=== PATIENT | female | born 1935 | race Caucasian/White ===

== ENCOUNTER 2016-09-13 13:03 | Emergency (ER) | payer MEDICARE, OTHER ==
[~2016-09-13 13:03] MED LIST: ADV250INH IH; ATEN100T PO; CYA1000I IM; DOXY50CA2 PO; DULO60CA61 PO; NORT10CA PO; OXYB5TAB10 PO; ROPI1TAB3 PO; TIOT18CA3 IH; ZOV800 PO
[2016-09-13 13:16] VITALS: BP 136/66; PULSE 74; RESP 18; O2SAT 97
--- NOTE | 2016-09-13 14:42 | ED.REPORT ---
HPI-Head Prob / Injury Date of Service Sep 13, 2016 ED Provider: Bruce Foreman PA-C Bessy is an 81-year-old female brought in by EMS for assessment following a ground-level fall. She states that she lost her balance while moving a breakfast tray in her room and fell over backwards striking her head on a portion of her bed frame. Denies head, neck pain. Denies losing consciousness, vomiting, use of blood thinners. Denies new neurological symptoms. She does report a history of peripheral polyneuropathy which is at baseline, and right shoulder pain which is been present for several weeks. Nursing Notes Stated Complaint: GLF Chief Complaint: Multiple Trauma/Fall Nursing Notes Reviewed: Yes Allergies: Coded Allergies: codeine (Verified Allergy, Severe, 05/19/09) diphenhydramine (Verified Allergy, Severe, 05/19/09) latex (Verified Allergy, Severe, 05/19/09) Scheduled Acyclovir (Acyclovir) 800 Mg Tab 800 MG PO DAILY Atenolol (Atenolol) 100 Mg Tablet 100 MG PO DAILY Cyanocobalamin (Cyanocobalamin Injection) 1,000 Mcg/1 Ml Vial 1,000 MCG IM Monthly Doxycycline Hyclate (Doxycycline Hyclate) 50 Mg Capsule 50 MG PO DAILY Duloxetine (Duloxetine) 60 Mg Capsule.dr 60 MG PO AM Fluticasone/Salmeterol (Advair 250-50 Diskus) 60 Puff/Inh Disk 1 PUFF IH BID Nortriptyline (Nortriptyline) 10 Mg Capsule 10 MG PO HS Oxybutynin Chloride (Oxybutynin Chloride) 5 Mg Tablet 5 MG PO TID Ropinirole (Ropinirole) 1 Mg Tablet 2 MG PO evening Ropinirole (Ropinirole) 1 Mg Tablet 3 MG PO HS Tiotropium [place] (Spiriva) 18 Mcg Cap.w.dev 18 MCG IH DAILY General Time Seen by Provider: 14:06 Chief Complaint Blunt head trauma Past Medical History Past Medical History Seasonal and environmental allergies History of ocular HSV infection, on chronic suppressive acyclovir. Peripheral polyneuropathy followed by Dr. Pichardo. Restless leg syndrome. History of skin cancers with Mohs procedure. Gastroesophageal reflux. Urinary urgency, on oxybutynin. Allergic rhinitis. Asthma. Vitamin B12 deficiency. Reports: Diabetes mellitus, Hypertension Family History noncontributory Smoking History Never Smoker Social History Alcohol Use: Denies alcohol use Drug Use: Denies drug use Other Social History: Good social support, Lives alone, , Local resident Ambulatory Status Cane Review of Systems Negative unless stated otherwise in history of present illness Physical Exam General: Well appearing, well developed, well nourished, no acute distress. Head: Atraumatic, normocephalic. No mastoid tenderness. Eyes: No scleral icterus or injection. No discharge. PERRL. Vision grossly intact. Ears: Pinna and tragus nontender with manipulation. External auditory canal patent, atraumatic and without discharge. Tympanic membrane cheung, shiny and translucent without fluid, bulging, retraction or perforation. Hearing grossly intact. Nose: Symmetrical, nares patent without discharge. No frontal or maxillary sinus tenderness. Mouth/pharynx: normal dentition, mucus membranes moist. Tonsils 2+ and symmetrical, uvula midline. Pharynx noninjected, no cobblestoning or discharge. Voice clear. Neck: Normal range of motion. No midline spinous process tenderness, paraspinal tenderness or lymphadenopathy. Trachea midline. Respiratory: Regular rate and rhythm. Breath sounds present, clear to auscultation and equal bilaterally. No respiratory distress. No increased work of breathing, speaks in complete sentences. Cardiovascular: Regular rate and rhythm, without murmur, gallop or rub. No pedal edema. Gastrointestinal: Abdomen flat and non-tender without guarding or rebound. Bowel sounds normoactive. Skin: Warm and dry. Legs: Bilateral erythema from mid de guzman down with warmth. No pitting edema. Neurological: Sensation and strength grossly intact in extremities. Cranial nerves: Vision grossly intact, PERRL, EOMI. Facial motion symmetrical, sensation to light touch over forehead, maxilla and mandible present and equal B /L. Voice clear and fluent, no drooling/pooling of saliva, uvula rises midline. Psychological: Alert and oriented. Speech appropriate, linear and logical. Behavior appropriate. Initial Vital Signs Vital Signs (First) Date Time Temp Pulse Resp B/P Pulse Ox O2 Delivery O2 Flow Rate FiO2 09/13/16 13:16 36.4 74 18 136/66 97 Room Air Initial VS: Reviewed, Vital signs normal Interpretation & Diagnostics Interpretation & Diagnostics: PROCEDURE: CT BRAIN WITHOUT CONTRAST ([id number]) INDICATIONS: GLF HIT HEAD C/O HEAD NECK PAIN IMPRESSION: 1. No acute intracranial abnormality. 2. Age-related atrophy and chronic deep white matter ischemic changes. PROCEDURE: CT CERVICAL SPINE WITHOUT CONTRAST ([id number]) INDICATIONS: GLF HIT HEAD C/O HEAD NECK PAIN IMPRESSION: 1. Negative for fracture. 2. 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 Ligamentous calcifications also noted. Re-Eval/Medical Decision Med Decision/Clinical Course 81-year-old female brought in for assessment following ground-level fall. She reports losing her balance and falling over backwards, striking her head against a bed frame. Denies loss of consciousness, use of blood thinners, vomiting, seizure. Denies neck pain or neurological symptoms. CT of her brain and neck are both reassuring. Physical examination reveals no neurological deficits. I have low suspicion of intracranial bleeding, neck injury or concussion. I do note that her lower legs are erythematous and warm. Her son states that her primary care provider has been treating her with antibiotics. They have an appointment for 8:30 tomorrow morning. I do not believe the patient is septic, as she is afebrile, not tachycardic or diaphoretic. She does not complain of malaise. I think is reasonable for her to follow-up with her primary care provider about this in the morning. I believe she is stable and safe for discharge to home. I discussed this with the patient and her son. They understand the plan and are comfortable with it. Provided a prescription for acetaminophen and ibuprofen to be used at her residence home. Provided return precautions. Discharge & Departure Primary Impression: Fall Encounter type: initial encounter Qualified Code: W19.XXXA - Unspecified fall, initial encounter Disposition: Home All VS Reviewed: Yes Condition: Stable Patient Instructions: Fall Prevention for Older Adults (GEN) Additional Instructions: Evaluation in the emergency department following a ground-level fall. CT scan of both your brain and neck revealed no injuries from a fall. I do not suspect that your fall was caused by a cardiac event or stroke. I believe you are stable and safe for discharge. I do note during the physical exam that your lower legs are very red and warm. This is apparently a condition you have been addressing with your primary care provider. I understand she has appointment for 8:30 tomorrow morning to further assess this. Returns emergency department for any new or worsening symptoms including suddenly increasing pain in her neck, neurologic changes, increasing headache, vomiting Referrals: Nicole Davila MD (PCP) EDSupervising Provider for APC: Rhonda Higgins MD copies to: Nicole Davila MD, Seth PA-C Sep 13, 2016 14:42
--- NOTE | 2016-09-13 15:35 | DRSVH ---
PROCEDURE: CT BRAIN WITHOUT CONTRAST ([id number]) INDICATIONS: GLF HIT HEAD C/O HEAD NECK PAIN TECHNIQUE: Noncontrast 4.5 mm thick angled axial sections acquired from the foramen magnum to the vertex, with c oronal reformats. COMPARISON: CT brain 01/15/2016 FINDINGS: Image quality: Excellent. CSF spaces: Basal cisterns are patent. No extra-axial fluid collections. The ventricles are symmet lisa in size and shape. Brain: No intracranial bleeds or masses. There is cerebral volume loss for age, with resultant vent ricular and sulcal prominence. There are periventricular and deep white matter chronic small vessel ischemic changes. There is intracranial internal carotid artery atherosclerosis. Skull and face: Calvarium and visualized facial bones appear intact, without suspicious lesions. Sinuses: Visualized sinuses and mastoids are clear. IMPRESSION: 1. No acute intracranial abnormality. 2. Age-related atrophy and chronic deep white matter ischemic changes. Dictated by: Leonel Doss M.D. on 09/13/2016 at 15:32 Approved by: Leonel Doss M.D. on 09/13/2016 at 15:34
--- NOTE | 2016-09-13 15:38 | DRSVH ---
PROCEDURE: CT CERVICAL SPINE WITHOUT CONTRAST ([id number]) INDICATIONS: GLF HIT HEAD C/O HEAD NECK PAIN TECHNIQUE: Noncontrast 3 mm thick sections acquired from the skull base to the T4 level. Sagittal and coronal r eformats were then constructed. For radiation dose reduction, the following was used: automated exp osure control, adjustment of mA and/or kV according to patient size. COMPARISON: CT cervical spine 01/17/2016 FINDINGS: Image quality: Excellent. Bones: No fractures or dislocations. Visualized superior ribs are intact. Degenerative disc disease with bony spondylosis at multiple levels below C3. Ligamentous calcifications surrounding the C1-2 l evel. Soft tissues: Prevertebral soft tissues are normal in thickness. No paravertebral hematomas. No ap ical pneumothoraces. IMPRESSION: 1. Negative for fracture. 2. 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 Ligamentous calcif ications also noted. Dictated by: Leonel Doss M.D. on 09/13/2016 at 15:34 Approved by: Leonel Doss M.D. on 09/13/2016 at 15:37
[2016-09-13 16:25] VITALS: BP 139/62; PULSE 77; RESP 14; O2SAT 93
[2016-09-13 16:27] VITALS: BP 139/62; PULSE 77; RESP 14; O2SAT 93
== END 2016-09-13 16:00 | disposition home or self-care (01) ==
LOC: SED 13:03
DX: S09.90XA Unspecified injury of head, initial encounter (principal); W01.0XXA Fall on same level from slipping, tripping and stumbling without subsequent striking against object, initial encounter; Y93.01 Activity, walking, marching and hiking; Y99.8 Other external cause status; Y92.122 Bedroom in nursing home as the place of occurrence of the external cause; E11.9 Type 2 diabetes mellitus without complications; I10 Essential (primary) hypertension; J45.909 Unspecified asthma, uncomplicated; R22.42 Localized swelling, mass and lump, left lower limb; R22.41 Localized swelling, mass and lump, right lower limb; Z79.51 Long term (current) use of inhaled steroids; Z88.5 Allergy status to narcotic agent; Z88.8 Allergy status to other drugs, medicaments and biological substances

== ENCOUNTER 2016-09-29 10:01 | Emergency (ER) | payer MEDICARE, OTHER ==
[~2016-09-29] VITALS: Ht 152.4 cm; Wt 76.4 kg
[2016-09-29 10:06] VITALS: BP 182/80; PULSE 72; RESP 12; O2SAT 97
--- NOTE | 2016-09-29 10:21 | ED.REPORT ---
HPI-General Illness Date of Service Sep 29, 2016 ED Provider: Anand Le MD 81 year old female with a history of IDDM and HTN presents to the ER from [facility] accompanied by her son due to elevated blood sugar. Son reports that he received a call today from RN at assisted living facility informing him that the patient's blood sugar was 325 and climbing, and that she has been vomiting repeatedly. Patient also reports transient episodes of lower abdominal discomfort that precede bowel movements and urination, and chronic dry cough. Associated symptoms include nausea, and diarrhea since being prescribed Metformin several weeks ago. She denies fever, SOB, headache, and history of CHF. Son reports that the patient finished a two week course of Keflex about 10 days ago to treat an infection in her feet. Nursing Notes Stated Complaint: HIGH BLOOD SUGAR Chief Complaint: General Complaint Nursing Notes Reviewed: Yes Allergies: Coded Allergies: codeine (Verified Allergy, Severe, 05/19/09) diphenhydramine (Verified Allergy, Severe, 05/19/09) latex (Verified Allergy, Severe, 05/19/09) Scheduled Acyclovir (Acyclovir) 800 Mg Tab 800 MG PO DAILY Atenolol (Atenolol) 100 Mg Tablet 100 MG PO DAILY Cephalexin (Keflex) 500 Mg Capsule 500 MG PO QID Cyanocobalamin (Cyanocobalamin Injection) 1,000 Mcg/1 Ml Vial 1,000 MCG IM Monthly Doxycycline Hyclate (Doxycycline Hyclate) 50 Mg Capsule 50 MG PO DAILY Duloxetine (Duloxetine) 60 Mg Capsule.dr 60 MG PO AM Fluticasone/Salmeterol (Advair 250-50 Diskus) 60 Puff/Inh Disk 1 PUFF IH BID Nortriptyline (Nortriptyline) 10 Mg Capsule 10 MG PO HS Oxybutynin Chloride (Oxybutynin Chloride) 5 Mg Tablet 5 MG PO TID Ropinirole (Ropinirole) 1 Mg Tablet 2 MG PO evening Ropinirole (Ropinirole) 1 Mg Tablet 3 MG PO HS Tiotropium [place] (Spiriva) 18 Mcg Cap.w.dev 18 MCG IH DAILY General Time Seen by MD: 10:20 [facility] Chief Complaint Other (Elevated Blood Sugar) Hx Obtained From: Patient Arrived By: Walk-in Sudden in Onset?: No Onset Occurred: 1 - 4 hours ago Symptom Duration: Since onset Associated with: Reports: Abdominal pain, Cough, Nausea, Vomiting, Denies: Chest pain, Fever, Shortness of breath Pertinent Negative: Pt denies other symptoms Context Related History: Reports Diabetes mellitus Past Medical History Past Medical History Seasonal and environmental allergies History of ocular HSV infection, on chronic suppressive acyclovir. Peripheral polyneuropathy followed by Dr. Pichardo. Restless leg syndrome. History of skin cancers with Mohs procedure. Gastroesophageal reflux. Urinary urgency, on oxybutynin. Allergic rhinitis. Asthma. Vitamin B12 deficiency. Reports: Diabetes mellitus, Hypertension, Denies: Congestive heart failure Family History noncontributory Smoking History Never Smoker Social History Alcohol Use: Denies alcohol use Drug Use: Denies drug use Other Social History: Good social support, Lives alone, , Local resident Ambulatory Status Cane Review of Systems Full Review of Systems Constitutional: Reports: Malaise, Denies: Chills, Fever Respiratory: Reports: Non-productive cough, Denies: Shortness of breath Cardiovascular: Denies: Chest pain GI: Reports: Abdominal pain, Diarrhea, Nausea, Vomiting Neurologic: Denies: Confusion, Headache Complete sys rev & neg: except as marked. Physical Exam Vital Signs Vital Signs Date Time Temp Pulse Resp B/P Pulse Ox O2 Delivery O2 Flow Rate FiO2 09/29/16 13:27 77 12 152/50 95 Room Air 09/29/16 13:25 77 12 152/50 95 Room Air 09/29/16 10:06 36.2 72 12 182/80 97 Room Air Initial VS: Reviewed Head / Eyes: Atraumatic, Normocephalic Neck: Supple, Non-tender, Full range of motion Extremities: Vascular intact, Neuro intact, No swelling, No tenderness Skin: Warm, Dry, No cyanosis Neurologic: Alert, Oriented, Nonfocal General/Constitutional: Awake, Alert, Well developed, Well nourished Respiratory / Chest: Breath sounds NL, No respiratory distress, No rales, No rhonchi, No wheezing Cardiovascular: Heart rate NL, Regular rhythm, Heart sounds NL, Cap refill not delayed, Peripheral circulation NL Lower Ext Edema: Positive: Bilateral 1+ Abdomen: No guarding, No rebound Tenderness/Guarding/Rebound: Positive: Tender suprapubic (mild) Interpretation & Diagnostics Lab Results Interpretation Result Diagram: 09/29/16 1110 09/29/16 1040 Test 09/29/16 10:30 09/29/16 10:40 09/29/16 11:10 Urine Color Straw (YELLOW) Urine Appearance Cloudy (CLEAR,HAZY) Urine pH 6.0 (5.0-8.0) Urine Specific [place] 1.005 (1.003-1.035) Urine Protein Tracemg/dL (NEG,TRACE) Urine Glucose (UA) 1000mg/dL (NEGATIVE) Urine Ketones Negativemg/dL (NEGATIVE) Urine Occult Blood Moderate (NEGATIVE) Urine Nitrite Positive (NEGATIVE) Urine Bilirubin Negative (NEGATIVE) Urine Urobilinogen Normalmg/dL (NORMAL) Urine Leukocyte Esterase Moderate (NEGATIVE) Urine RBC 0-2/hpf (0-2) Urine WBC >50/hpf (0-5) Urine Epithelial Cells Occasional/hpf (NONE-MOD) Urine Crystals None seen (NONE SEEN) Urine Bacteria Moderate/hpf (NONE-FEW) Urine Hyaline Casts None/lpf (NONE) Urine Granular Casts None seen (NONE SEEN) Urine Waxy Casts None seen (NONE SEEN) Urine Red Blood Cell Casts None seen (NONE SEEN) Urine White Blood Cell Casts None seen (NONE SEEN) Urine Mucus None seen (None Seen) Urine Trichomonas None seen (NONE SEEN) Urine Yeast None (NONE SEEN) Urinalysis Comment None Urine Culture Reflexed Indicated Hold Urine Received (Received) Sodium Level 136mEq/L (134-144) Potassium Level 4.8mEq/L (3.5-5.2) Chloride Level 95mEq/L (97-108) Carbon Dioxide Level 27mmol/L (18-29) Blood Urea Nitrogen 18mg/dL (8-27) Creatinine 0.73mg/dL (0.57-1.00) Estimat Glomerular Filtration Rate 109mL/min (>59) Glucose Level 407mg/dL (60-99) Calcium Level 9.1mg/dL (8.5-10.1) Magnesium Level 1.6mg/dL (1.6-2.6) Total Bilirubin 0.4mg/dL (0.0-1.2) Aspartate Amino Transf (AST/SGOT) 21U/L (0-50) Alanine Aminotransferase (ALT/SGPT) 26U/L (0-32) Alkaline Phosphatase 78U/L (25-165) Total Protein 7.1g/dL (6.4-8.4) Albumin 4.2g/dL (3.4-5.0) Lipase 81U/L (13-60) White Blood Count 7.3th/mm3 (3.8-10.1) Red Blood Count 4.60mil/mm3 (3.90-5.20) Hemoglobin 12.9g/dL (12.0-15.6) Hematocrit 39.6% (35.0-46.0) Mean Corpuscular Volume 86.1fL (81-100) Mean Corpuscular Hemoglobin 28.0pg (27.0-35.0) Mean Corpuscular Hemoglobin Concent 32.6% (32.0-37.0) Red Cell Distribution Width 14.1% (12.3-15.4) Platelet Count 165bil/L (150-400) Neutrophils (%) (Auto) 59.8% (40-74) Lymphocytes (%) (Auto) 29.0% (14-46) Monocytes (%) (Auto) 9.2% (4-12) Eosinophils (%) (Auto) 1.6% (0-5) Basophils (%) (Auto) 0.3% (0-3) Re-Eval/Medical Decision Med Decision/Clinical Course 81-year-old female history of diabetes presenting with elevated blood sugars and dysuria. Also with some nausea and diarrhea. She reports diarrhea started several weeks ago after starting metformin. Also with some nausea. Urine suggests UTI. Blood sugars 300s improved to 200s with insulin. She was given fluids and felt much better. Patient was discharged with oral antibiotics with follow-up with primary doctor tomorrow. Return precautions regarding signs symptoms pyelonephritis or other new or worsening symptoms. Source of Hx: Old records Time of Eval: 11:05 Re-Evaluation/Progress Note: Discussed lab results and plan to discharge. Patient is amenable to the plan. Return precautions given. All other questions addressed. Counseled Regarding: Diagnosis, Lab results, Need for follow-up, When/why to return to ED Discharge & Departure Primary Impression: UTI (urinary tract infection) Disposition: Home Discharge Condition All VS Reviewed: Yes Condition: Stable Patient Instructions: Urinary Tract Infection in Women (DC) Additional Instructions: Your workup today was reassuring. I do not believe that there is any dangerous cause for your symptoms at this time. I have prescribed you Keflex, an antibiotic. Please take as directed. It is important that you take the entire course of antibiotics even if you are feeling better. If you continue to feel nauseated, maintain a bland diet. Drink plenty of fluids. Call your primary care provider to arrange a follow-up appointment either tomorrow or Monday. Return to the ER if you develop worsening pain, fever, chills, uncontrollable vomiting, or any other concerning symptoms. Referrals: Nicole Davila MD (PCP) Brenda Attestation Portions of this note were transcribed by Orlin Valdez. I, Dr. Le, personally performed the history, physical exam and medical decision-making; I reviewed and confirmed the accuracy of the information in the transcribed note. Signed by: Brenda Hong, 09/29/2016 - 12:48 copies to: Nicole Davila MD, Ben M MD Sep 29, 2016 10:21 ORLIN VALDEZ Sep 29, 2016 10:37
[2016-09-29] MEDS ORDERED: 0.9% Sodium Chloride 500 ML IV ONE (11:10)
[2016-09-29] MEDS ORDERED: Ondansetron 2 mg/mL 2 mL Inj IVPUSH PRN (11:10)
[2016-09-29 11:19] LABS: BASOPHILS % (AUTO) 0.3 % (0-3); EOSINOPHILS % (AUTO) 1.6 % (0-5); MONOCYTES % (AUTO) 9.2 % (4-12); Mean Corpuscular Volume 86.1 fL (81-100); NEUTROPHILS % (AUTO) 59.8 % (40-74); Platelet Count 165 bil/L (150-400)
[2016-09-29 11:33] LABS: Magnesium 1.6 mg/dL (1.6-2.6)
[2016-09-29] MEDS ORDERED: Insulin LISPRO 300 Unit/3 mL Inj SUBQ ONE (11:35)
[2016-09-29 12:01] LABS: APPEARANCE,URINE CLOUDY (CLEAR,HAZY); COLOR,URINE STRAW (YELLOW); OCCULT BLOOD,URINE MODERATE (NEGATIVE); UROBILINOGEN,URINE NORMAL (NORMAL)
[2016-09-29] MEDS ORDERED: CEPH-512 PO (12:51)
[2016-09-29 13:25] VITALS: BP 152/50; PULSE 77; RESP 12; O2SAT 95
[2016-09-29 13:27] VITALS: BP 152/50; PULSE 77; RESP 12; O2SAT 95
== END 2016-09-29 13:28 | disposition home or self-care (01) ==
LOC: SED 10:01
DX: N39.0 Urinary tract infection, site not specified (principal); B96.20 Unspecified Escherichia coli [E. coli] as the cause of diseases classified elsewhere; R10.30 Lower abdominal pain, unspecified; R05 Cough; R11.0 Nausea; R19.7 Diarrhea, unspecified; J45.909 Unspecified asthma, uncomplicated; I10 Essential (primary) hypertension; E11.42 Type 2 diabetes mellitus with diabetic polyneuropathy; K21.9 Gastro-esophageal reflux disease without esophagitis; Z88.5 Allergy status to narcotic agent; Z88.8 Allergy status to other drugs, medicaments and biological substances; Z91.040 Latex allergy status; Z79.84 Long term (current) use of oral hypoglycemic drugs
CPT/HCPCS: 36415; 80053; 81000; 82948; 83690; 83735; 85025; 87086; 87088; 87186; 96360; 96372; 99284; J1815; J7030